=== PATIENT | male | born 1965 | race Caucasian/White ===

== ENCOUNTER → 2016-10-02 | Day surgery (SDC) | payer MEDICARE, MEDICAID ==
[~2016-10-02] VITALS: Ht 182.9 cm; Wt 62.5 kg
[~2016-10-02] MED LIST: BACL20TA PO; CIPR-9 PO; CIPROFLOXACIN 400 MG PREMIX 200 ML ONE; DANT25 PO; DIAZ5 PO; HYDR-3533 PO; LACTATED RINGER'S 1000 ML INJ 1,000 ML ONE; LEVA500T PO; LEVO500T3 PO; MIDAZOLAM HCL 5 MG/ML VIAL (1 ML) ONE; OMEP10CA PO; PROPOFOL 200 MG/20 ML AMP IV ONE
[2016-10-02 07:52] LABS: MEAN CELL VOLUME 95.3 FL (80.0-100.0); MEAN CORPUSCULAR HEMOGLOBIN 31.9 PG (27.0-34.0); MEAN CORPUSCULAR HGB CONC 33.5 % (32.0-36.0); PLATELET COUNT 172 TH/MM3 (150-450); RED CELL DISTRIBUTION WIDTH 13.9 % (11.6-17.2); REVIEW FLAG FINAL; WHITE BLOOD COUNT 5.1 TH/MM3 (4.0-11.0)
--- NOTE | 2016-10-02 08:18 | RADRPT ---
EXAM DATE/TIME: 10/02/2016 07:49 [place] COMPARISON: No previous studies available for comparison. INDICATIONS : Bilateral kidney stones. Pre op lithotripsy. MEDICAL HISTORY : Renal calculi SURGICAL HISTORY : lithotripsy ENCOUNTER: Initial ACUITY: 1 day PAIN SCORE: 0/10 LOCATION: Abdomen FINDINGS: The bowel gas pattern is within normal limits. There is a single 4 mm calcification in the low pelvis on the right. Potentially, this could represen t a renal stone. This could also represent a phlebolith as well. No significant calcifications are se en on the left. The osseous structures demonstrate previous fracture of the right hip. There are degenerative changes within the spine. CONCLUSION: 1. Small calcification in the right low pelvis possibly representing a stone in the distal right uret er. Miguel Kearney MD on October 02, 2016 at 8:15 Board Certified Radiologist. This report was verified electronically.
[2016-10-02 08:20] VITALS: BP 113/82; PULSE 66; RESP 16; TEMP 97.8; O2SAT 100
[2016-10-02 12:15] VITALS: BP 123/75; PULSE 71; RESP 16; TEMP 97.8; O2SAT 100
--- NOTE | 2016-10-03 13:17 | MP ---
cc: CURTIS SMYTH DATE OF SURGERY: 10/03/2016 PREOPERATIVE DIAGNOSIS 7 mm left renal stone. POSTOPERATIVE DIAGNOSIS 7 mm left renal stone. PROCEDURE Left extracorporeal shockwave lithotripsy. SURGEON Curtis Smyth MD ANESTHESIA TIVA. FLUIDS 500 ccs crystalloid. BLOOD LOSS No blood loss. COMPLICATIONS No complications. FINDINGS Mild fragmentation of the stone was visualized under fluoroscopic imaging. INDICATION Mr. Balta Styles is a 51-year-old male who presents with findings of a left renal stone, approximately 7 to 8 mm in size. He also has a history of paraplegia with a neurogenic bladder and performs intermittent catheterization. PROCEDURE The patient was brought to the operating room, identified by myself as Balta Styles. He as placed on the operating table in the supine position. He received preprocedure antibiotics and TIVA anesthesia was administered. Under fluoroscopic imaging guidance, the stone was visualized and then ESWL therapy commenced. The first 50 shocks were power level of 15 and a rate of 120, the next 50 shocks were power level of 17, rate of 120, from 100-150 it was a power level 18, rate of 120 and then from 150-2500 shocks at power level of 20 and a rate of 120. Mild fragmentation of the stone was visualized under fluoroscopic imaging guidance. He tolerated the procedure well and was transferred to the recovery room in stable condition. He will followup in the office in 2 weeks and will obtain a KUB x-ray prior. Curtis Smyth SWT/TLL /10:46 AM /1:05 PM
== END | disposition home or self-care (01) ==
LOC: CSDC 07:24
PROVIDERS: ATTEND Urology
DX: N20.0 Calculus of kidney (principal)
CPT/HCPCS: 00873; 36415; 50590; 74000; 85027; J0744; J2250; J7120